=== PATIENT | male | born 1980 | race Caucasian/White ===

== ENCOUNTER 2025-01-26 18:48 | Emergency (ER) | payer BC, OTHER ==
--- NOTE | 2025-01-26 20:14 | RAD REPORT ---
EXAMINATION: XR RIGHT FOOT CLINICAL INDICATION: Male, 44 years old. PAIN TECHNIQUE: Multiple views of the right foot were obtained. COMPARISON: No prior exam. FINDINGS: Moderate soft tissue swelling is seen. No soft tissue gas is evident. No fracture, dislocat ion or aggressive marrow lesion.
[2025-01-26] MEDS ORDERED: SMZ./TMP. 800/160 MG TABLET ONE (21:37)
[2025-01-26] MEDS ORDERED: CEFTRIAXONE 1000 MG/VIAL ONE (21:37)
[2025-01-26] MEDS ORDERED: LIDOCAINE 1% MPF 2 ML AMPULE ONE (21:38)
[2025-01-26 21:39] LABS: Absolute Basophils 0.1 K/uL (0-0.5); Absolute Eosinophils 0.1 K/uL (0-0.5); Absolute Lymphocytes (CBC) 2.1 K/uL (0.7-4.9); Absolute Monocytes 0.8 K/uL (0.1-1.3); Basophils % 0.7 % (0-1.3); Hematocrit 46.7 % (39.6-49.0); Lymphocytes % 18.8 % (15.3-44.8); MCH 29.7 pg (27.0-35.0); MCHC 34.2 g/dL (32.0-36.0); MCV 86.8 fL (80-100); MPV 8.5 fL (7.6-11.3); Neutrophils % 72.5 % (41.7-73.7); Platelets 227 thou/uL (152-406); RBC Red Blood Cell Count 5.38 M/uL (4.33-5.43); Red Cell Distribution Width 13.7 % (12.1-15.2)
[2025-01-26 21:54] LABS: Albumin/Globulin Ratio 1.1 (1.1-1.8); Anion Gap 6.7 mEq/L (5.0-15.0); Bilirubin Total 0.8 mg/dL (0.2-1.0); Globulin 3.6 g/dL (2.3-3.5); Potassium 3.7 mEq/L (3.5-5.1); Protein, Total 7.6 g/dL (6.4-8.2)
--- NOTE | 2025-01-26 22:14 | ER ---
Nurse's Notes [facility] Name: Morgan Vergara Age: 44 yrs Sex: Male : 1980 Arrival Date: 01/26/2025 Time: 18:48 Bed 29 Private MD: Diagnosis: Cellulitis of right lower limb;Acute infected Hymenoptera bite, Acute cellulitis right foot and ankle Presentation: 01/26 19:22 Chief complaint: Patient states: R foot and ankle swelling that began Friday after ss getting stung by a wasp. Coronavirus screen: Client denies travel out of the [place] in the last 14 days. Ebola Screen: Patient denies exposure to infectious person. Patient denies travel to an Ebola-affected area in the 21 days before illness onset. Initial Sepsis Screen: Does the patient meet any 2 criteria? No. Patient's initial sepsis screen is negative. Does the patient have a suspected source of infection? No. Patient's initial sepsis screen is negative. Risk Assessment: Do you want to hurt yourself or someone else? Patient reports no desire to harm self or others. Onset of symptoms was January 24, 2025. 19:22 Method Of Arrival: Ambulatory ss 19:22 Acuity: CONRAD 3 ss Historical: - Allergies: 19:23 No Known Allergies; ss - Home Meds: 19:23 Adderall XR Oral [Active]; ss - PMHx: 19:23 ADHD; ss - PSHx: 19:23 None; ss - Social history:: Smoking status: Reported history of juuling and/or vaping. - Family history:: not pertinent. Screenin:35 [facility] ED Fall Risk Assessment (Adult) History of falling in the last 3 months, vc1 including since admission No falls in past 3 months (0 pts) Confusion or Disorientation No (0 pts) Intoxicated or Sedated No (0 pts) Impaired Gait No (0 pts) Mobility Assist Device Used No (0 pt) Altered Elimination No (0 pt) Score/Fall Risk Level 0 - 2 = Low Risk Oriented to surroundings, Maintained a safe environment, Educated pt \T\ family on fall prevention, incl call for assistance when getting out of bed, Provided non-skid footwear. Abuse screen: Denies threats or abuse. Nutritional screening: No deficits noted. Tuberculosis screening: No symptoms or risk factors identified. Vital Signs: 19:22 BP 127 / 87; Pulse 92; Resp 16; Temp 98.4(TE); Pulse Ox 97% on R/A; Weight 120.2 kg; ss Height 6 ft. 0 in. ; Pain 6/10; 19:22 Body Mass Index 35.94 (120.20 kg, 182.88 cm) ss 19:22 Pain Scale: Adult ss Babs Coma Score: 22:41 Eye Response: spontaneous(4). Motor Response: obeys commands(6). Verbal Response: sp4 oriented(5). Total: 15. ED Course: 18:53 Patient arrived in ED. cj3 19:23 Trey James MD is Attending Physician. russell 19:23 Triage completed. ss 19:23 Arm band placed on right wrist. ss 20:09 Foot Right 3 View XRAY In Process Unspecified. EDMS 20:12 Attending Physician role handed off by Trey James MD sp4 20:12 Celestino Garcia MD is Attending Physician. sp4 21:31 CMP Sent. rk3 21:31 CBC with Diff Sent. rk3 22:37 Patient has correct armband on for positive identification. Bed in low position. Call vc1 light in reach. Provided Education on: f/u. 22:37 No provider procedures requiring assistance completed. Patient did not have IV access vc1 during this emergency room visit. Administered Medications: 20:37 CANCELLED (Physician Discretion): ns 0.9% 500 ml 500 ml IV at 1 bolus once; to be given sp4 as a bolus over 30 minutes 21:45 Drug: Trimethoprim-Sulfamethoxazole PO (160 mg-800 mg (DS) 1 tablet PO once Route: PO; vc1 21:55 Drug: Rocephin (cefTRIAXone) IM 1 grams IM once Route: IM; Site: left vastus lateralis; vc1 Medication: 22:37 VIS not applicable for this client. vc1 Outcome: 22:13 Discharge ordered by . sp4 22:38 Discharged to home ambulatory, with significant other, vc1 22:38 Condition: stable 22:38 Discharge instructions given to patient, Instructed on discharge instructions, follow up and referral plans. medication usage, Demonstrated understanding of instructions, follow-up care, medications, Prescriptions given X 2, 22:38 Patient left the ED. vc1 Signatures: Dispatcher [employer] EDMS Jacob, Trey, MD MD russell Rand, Dottie, RN RN ss Noris De Guzman RN RN vc1 Celestino Garcia MD MD sp4 Herbie Byrd rk3 Chari Son cj3
--- NOTE | 2025-01-26 22:14 | EDPHYS ---
Physician Documentation [facility] Name: Morgan Vergara Age: 44 yrs Sex: Male : 1980 Arrival Date: 01/26/2025 Time: 18:48 Bed 29 Private MD: ED Physician Celestino Garcia HPI: 01/26 20:12 This 44 yrs old Male presents to ER via Ambulatory with complaints of RT Foot sp4 Swelling. 22:40 Patient presents with right foot and ankle redness and swelling after being stung by a sp4 wasp on Friday 2 days ago.. Historical: - Allergies: 19:23 No Known Allergies; ss - Home Meds: 19:23 Adderall XR Oral [Active]; ss - PMHx: 19:23 ADHD; ss - PSHx: 19:23 None; ss - Social history:: Smoking status: Reported history of juuling and/or vaping. - Family history:: not pertinent. ROS: 22:41 MS/extremity: Positive for Positive right foot and ankle redness swelling consistent sp4 with cellulitis, no abscess, of the lateral aspect of right calf and right ankle, 22:41 Constitutional: Negative for fever, chills, and weight loss, 22:41 All other systems are negative, Exam: 22:41 Constitutional: This is a well developed, well nourished patient who is awake, alert, sp4 and in no acute distress. Head/Face: Normocephalic, atraumatic. Eyes: Pupils equal round and reactive to light, extra-ocular motions intact. Lids and lashes normal. Conjunctiva and sclera are not injected. Cornea within normal limits. Periorbital areas with no swelling, redness, or edema. ENT: Nares patent. No nasal discharge, no septal abnormalities noted. Tympanic membranes are normal and external auditory canals are clear. Oropharynx with no redness, swelling, or masses, exudates, or evidence of obstruction, uvula midline. Mucous membranes moist. Neck: Trachea midline, no thyromegaly or masses palpated, and no cervical lymphadenopathy. Supple, full range of motion without nuchal rigidity, or vertebral point tenderness. Chest/axilla: Normal chest wall appearance and motion. Nontender with no deformity. No lesions are appreciated. Cardiovascular: Regular rate and rhythm with a normal S1 and S2. No gallops, murmurs, or rubs. Normal PMI, no JVD. No pulse deficits. Respiratory: Lungs have equal breath sounds bilaterally, clear to auscultation and percussion. No rales, rhonchi or wheezes noted. No increased work of breathing, no retractions or nasal flaring. Abdomen/GI: Soft, with normal bowel sounds. No distension or tympany. No guarding or rebound. No evidence of tenderness throughout. Back: No spinal tenderness. No costovertebral tenderness. Skin: Warm, dry with normal turgor. Normal color with no rashes, right lower ankle redness swelling tenderness right upper foot redness swelling tenderness consistent with acute cellulitis. Cellulitis tracking up to mid calf. There is apparent puncture wound from wasp sting . Patient has limping ambulation, normal peripheral pulses MS/ Extremity: Pulses equal, no cyanosis. Neurovascular intact. Full, normal range of motion. See exam of the skin above Neuro: Awake and alert, GCS 15, oriented to person, place, time, and situation. Cranial nerves II-XII grossly intact. Motor strength 5/5 in all extremities. Sensory grossly intact. Psych: Awake, alert, with orientation to person, place and time. Behavior, mood, and affect are within normal limits Vital Signs: 19:22 BP 127 / 87; Pulse 92; Resp 16; Temp 98.4(TE); Pulse Ox 97% on R/A; Weight 120.2 kg; ss Height 6 ft. 0 in. ; Pain 6/10; 19:22 Body Mass Index 35.94 (120.20 kg, 182.88 cm) 19:22 Pain Scale: Adult ss Babs Coma Score: 22:41 Eye Response: spontaneous(4). Motor Response: obeys commands(6). Verbal Response: sp4 oriented(5). Total: 15. MDM: 19:23 Medical Screening Exam initiated russell 22:43 Differential diagnosis: fracture, sprain, arthritis, gout, cellulitis. Data reviewed: sp4 vital signs, nurses notes, lab test result(s), radiologic studies. ED course: EXAMINATION: XR RIGHT FOOT CLINICAL INDICATION: Male, 44 years old. PAIN TECHNIQUE: Multiple views of the right foot were obtained. COMPARISON: No prior exam. FINDINGS: Moderate soft tissue swelling is seen. No soft tissue gas is evident. No fracture, dislocation or aggressive marrow lesion. . ED course: Patient prescribed 10-day course of Bactrim and Keflex for acute cellulitis of the right lower extremity. No signs of diabetes based on blood work. Patient stable for discharge home.. 01/26 19:24 Order name: CBC with Diff; Complete Time: 22:05 [facility] 01/26 19:24 Order name: CMP; Complete Time: 22:05 [facility] 01/26 19:24 Order name: Foot Right 3 View XRAY; Complete Time: 22:05 [facility] Administered Medications: 20:37 CANCELLED (Physician Discretion): ns 0.9% 500 ml 500 ml IV at 1 bolus once; to be given sp4 as a bolus over 30 minutes 21:45 Drug: Trimethoprim-Sulfamethoxazole PO (160 mg-800 mg (DS) 1 tablet PO once Route: PO; vc1 21:55 Drug: Rocephin (cefTRIAXone) IM 1 grams IM once Route: IM; Site: left vastus lateralis; vc1 Disposition: 22:44 Chart complete. sp4 Disposition Summary: 01/26/25 22:13 Discharge Ordered Notes: Location: Home sp4 Problem: new sp4 Symptoms: have improved sp4 Condition: Stable sp4 Diagnosis - Cellulitis of right lower limb sp4 - Acute infected Hymenoptera bite, Acute cellulitis right foot and ankle sp4 Followup: sp4 - With: Private Physician - When: 7 - 10 days - Reason: Recheck today's complaints Discharge Instructions: - Discharge Summary Sheet sp4 - Cellulitis, Adult sp4 Forms: - Patient Portal Instructions sp4 Prescriptions: - Cephalexin 500 mg Oral Capsule - take 1 capsule ORAL route every 6 hours for 10 days; 40 capsule; Refills: 0, sp4 Product Selection Permitted - Bactrim DS 800-160 mg Oral Tablet - take 1 tablet ORAL route every 12 hours for 10 days; 20 tablet; Refills: 0, sp4 Product Selection Permitted Signatures: Dispatcher [employer] Trey Salgado MD MD cha Blanchard, Shelby, RN RN ss Noris De Guzman RN RN vc1 Celestino Garcia MD MD sp4 Corrections: (The following items were deleted from the chart) 20:37 19:24 NS 0.9% IV 500 ml 500 ml IV at 1 bolus once; to be given as a bolus over 30 sp4 minutes ordered. russell 22:41 22:40 Patient presents with right foot and ankle redness and swelling after being stung sp4 by a wasp yesterday.. sp4
[2025-01-26 23:20] VITALS: BP 127/87; TEMP 98.4; O2SAT 97
== END 2025-01-26 22:38 | disposition home or self-care (01) ==
LOC: ER 18:48
DX: L03.115 Cellulitis of right lower limb (principal); W57.XXXA Bitten or stung by nonvenomous insect and other nonvenomous arthropods, initial encounter
CPT/HCPCS: 36415; 80053; 85025; J0696